=== PATIENT | female | born 1970 | race Caucasian/White ===

== ENCOUNTER 2017-03-11 10:52 | Outpatient (CLI) | payer BC | END 2017-03-11 10:53 | disposition home or self-care (01) | DX: E04.0 Nontoxic diffuse goiter (principal) ==

== ENCOUNTER 2017-03-22 13:14 | Outpatient (CLI) | payer BC ==
--- NOTE | 2017-03-22 16:47 | Ultrasound Report ---
THYROID ULTRASOUND: 03/22/2017 CLINICAL HISTORY: A 46-year-old female who has had a mass in the central portion of the neck at the level of the thyroid since at least age 23 years old. Recently, this mass has shown some mild increase in size. TECHNIQUE: Real-time scanning was performed with sales representative adding machines static images obtained. FINDINGS: Thyroid ultrasound demonstrates the right lobe of the thyroid to measure 4.9 cm by 1 cm by 1.3 cm for a volume of 3.3 cubic centimeters. The left lobe of the thyroid measures 4.6 cm by 1.2 cm by 1.2 cm for a volume of 3.4 cubic centimeters. The thyroid appears normal in size and parenchymal pattern. The thyroid isthmus measures 0.15 cm. It, too, appears normal in size and parenchymal pattern. Immediately anterior to the thyroid isthmus and completely separate from it is a rounded mass measuring 2.2 cm by 2.8 cm by 1.7 cm. This mass has a very similar appearance to the adjacent thyroid gland. 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 There are two 0.2 cm hypodense nodules are noted within the inferior aspect of this ectopic thyroid tissue. These may represent tiny thyroid cysts. Considering patient is noting increased size of this potentially ectopic thyroid tissue, recommend patient have thyroid function tests. Also suggest that she have I-123 thyroid Nuclear Medicine scan with SPECT imaging to further confirm that the midline mass truly does represent ectopic thyroid tissue. IMPRESSION: 1. NORMALLY SITUATED THYROID GLAND IS NOTED. 2. IMMEDIATELY ANTERIOR TO THE THYROID ISTHMUS AND SEPARATE FROM IT, IS A 2.2 CM BY 2.8 CM BY 1.7 CM OVAL-SHAPED MASS THAT MOST LIKELY REPRESENTS ECTOPIC THYROID TISSUE. RECOMMEND AN I-123 NUCLEAR MEDICINE SCAN OF THE THYROID IN ASSOCIATION WITH SPECT IMAGING TO FURTHER CONFIRM THIS ETIOLOGY. ALSO RECOMMEND THYROID FUNCTION TESTS FOR FURTHER EVALUATION. JOB #: [id number] EXT JOB #: [id number] [facility]
== END 2017-03-22 13:15 | disposition home or self-care (01) ==
LOC: DI 13:14
PROVIDERS: ATTEND Nurse Practitioner Obstetrics & Gynecology
DX: E07.9 Disorder of thyroid, unspecified (principal)
CPT/HCPCS: 76536

== ENCOUNTER 2017-04-23 11:42 | Outpatient (CLI) | payer BC ==
[2017-04-23 19:43] LABS: BASOPHILS # (AUTO) 0.1 10^3/uL (0.0-0.1); BASOPHILS % (AUTO) 1.4 %; EOSINOPHILS # (AUTO) 0.2 10^3/uL (0.0-0.7); EOSINOPHILS % (AUTO) 2.6 %; HCT - HEMATOCRIT 38.4 % (37.0-47.0); HGB - HEMOGLOBIN 12.6 g/dL (12.0-16.0); LYMPHOCYTES # (AUTO) 2.6 10^3/uL (1.5-3.5); LYMPHOCYTES % (AUTO) 34.6 %; MEAN CORPUSCULAR HEMOGLOBIN 32.1 pg (27.0-31.0); MEAN CORPUSCULAR HGB CONC 32.8 g/dL (32.0-36.0); MEAN CORPUSCULAR VOLUME 97.9 fL (81.0-99.0); MEAN PLATELET VOLUME 9.1 fL (7.9-10.8); MONOCYTES # (AUTO) 0.6 10^3/uL (0.0-1.0); MONOCYTES % (AUTO) 7.4 %; RED BLOOD COUNT 3.92 10^6/uL (4.20-5.40); RED CELL DISTRIBUTION WIDTH 13.9 % (12.0-15.0); UNCORRECTED WHITE BLOOD COUNT 7.5 x10^3/uL; WHITE BLOOD COUNT 7.5 x10^3/uL (4.8-10.8)
[2017-04-23 20:14] LABS: ALBUMIN/GLOBULIN RATIO 1.2 (1.0-2.2); BILIRUBIN,TOTAL 0.5 mg/dL (0.2-1.0); CREATININE 0.8 mg/dL (0.4-1.0); TOTAL PROTEIN 6.9 g/dL (6.7-8.2)
== END 2017-04-23 11:43 | disposition home or self-care (01) ==
LOC: LAB.WCP 11:42
PROVIDERS: ATTEND Physician Assistant Medical
DX: E07.9 Disorder of thyroid, unspecified (principal)
CPT/HCPCS: 36415; 80053; 84432; 85025; 86800

== ENCOUNTER 2017-06-03 08:57 | Outpatient (CLI) | payer BC ==
--- NOTE | 2017-06-04 11:32 | Nuclear Medicine Report ---
EXAM: THYROID UPTAKE AND SCAN EXAM DATE: 06/03/2017 09:27 AM. CLINICAL HISTORY: THYROID MASS. COMPARISON: Ultrasound exam dated 03/22/2017. TECHNIQUE: Patient was administered 392 microcuries of I-123 orally and returned at 4 and 24 hours fo r thyroid uptake measurement. At 4 hours after radioiodine ingestion, anterior gamma camera images of the patient's neck were obtained from 3 standard angles. FINDINGS: Uptake: 4 Hour: 5% (Normal 4-18%). 24 Hour: 12.6% (Normal 8-32%). Thyroid Scan: Thyroid gland of normal size without hot or cold nodules. IMPRESSION: 1. Normal 4 and 24-hour uptake. 2. Normal scintigraphic appearance of thyroid gland without hot or cold nodules. [facility] Referring Provider Line: [phone] SITE ID: [id number]
== END 2017-06-03 08:58 | disposition home or self-care (01) ==
LOC: DI 08:57
PROVIDERS: ATTEND Physician Assistant Medical
DX: E07.9 Disorder of thyroid, unspecified (principal)
CPT/HCPCS: 78014; A9509

== ENCOUNTER 2017-09-17 08:02 | Outpatient (CLI) | payer BC ==
--- NOTE | 2017-09-18 15:05 | Mammography Report ---
DIGITAL SCREENING MAMMOGRAM: 09/17/2017 CLINICAL INDICATION: A 46-year-old nulliparous patient for screening. COMPARISON: 08/2016, 07/2014, 07/2013 TECHNIQUE: Routine CC and MLO projections were obtained of the breasts. FINDINGS: Parenchymal tissue within both breasts is heterogeneously dense, which may lower the sensi tivity of mammography; however, there are no dominant masses, suspicious microcalcifications, or seco ndary signs of malignancy. In comparison to the previous studies, there are no significant changes. ASSESSMENT: NO MAMMOGRAPHIC EVIDENCE OF MALIGNANCY. NO SIGNIFICANT INTERVAL CHANGES. RECOMMENDATION: Screening mammography is recommended annually. BIRADS category 1 - negative. STANDARD QUALIFYING STATEMENTS 1. This examination was reviewed with the aid of Computed-Aided Detection (CAD). 2. A negative or benign imaging report should not delay biopsy if clinically suspicious findings are present. Consider surgical consultation if warranted. More than 5% of cancers are not identified by i maging. 3. Dense breasts may obscure an underlying neoplasm. JOB #: [id number] EXT JOB #:[id number]
== END 2017-09-17 08:03 | disposition home or self-care (01) ==
LOC: DI.N 08:02
PROVIDERS: ATTEND Physician Assistant Medical
DX: Z12.31 Encounter for screening mammogram for malignant neoplasm of breast (principal)
CPT/HCPCS: 77067

== ENCOUNTER 2018-09-30 07:56 | Outpatient (CLI) | payer BC ==
--- NOTE | 2018-10-01 08:51 | Mammography Report ---
Reason: SCREENING MAMMO Procedure Date: 09/30/2018 Accession Number: [id number] / [id number] Procedure: ISSA - Screening Mammo w/Louis CPT Code: FULL RESULT: EXAM: Screening Mammo w/Louis DATE: 09/30/2018 8:49 AM CLINICAL HISTORY: Screening encounter. History of nulliparity. TECHNIQUE: Bilateral CC and MLO views were obtained. A right laterally exaggerated view was obtained. COMPARISON: 09/17/2017 through 08/15/2013. FINDINGS: The breasts demonstrate heterogeneously dense fibroglandular parenchyma bilaterally. No suspicious masses, clustered microcalcifications, or regions of architectural distortion are identified. IMPRESSION: Negative examination RECOMMENDATION: Routine annual screening unless otherwise clinically indicated. BIRADS CATEGORY 1: Negative STANDARD QUALIFYING STATEMENTS: 1. This examination was not reviewed with the aid of Computer-Aided Detection (CAD). 2. A negative or benign imaging report should not preclude biopsy if clinically suspicious findings are present. 3. Dense breasts may obscure an underlying neoplasm. 4. This examination was reviewed with the aid of 3D breast imaging (tomosynthesis).
== END 2018-09-30 07:57 | disposition home or self-care (01) ==
LOC: DI 07:56
DX: Z12.31 Encounter for screening mammogram for malignant neoplasm of breast (principal)
CPT/HCPCS: 77063; 77067

== ENCOUNTER 2020-07-22 09:22 | Outpatient (CLI) | payer BC ==
--- NOTE | 2020-07-25 13:39 | Mammography Report ---
BILATERAL DIGITAL SCREENING MAMMOGRAM 3D/2D: 07/22/2020 CLINICAL: Routine screening. Comparison is made to exams dated: 09/30/2018 mammogram, 09/17/2017 mammogram, and 09/06/2016 mammogr am - [facility]. The tissue of both breasts is heterogeneously dense. This may low er the sensitivity of mammography. No significant masses, calcifications, or other findings are seen in either breast. There has been no significant interval change. IMPRESSION: NEGATIVE There is no mammographic evidence of malignancy. A 1 year screening mammogram is recommended. This exam was interpreted at Station ID: [id number]. NOTE: For mammograms, a report in lay terms will be sent to the patient. Approximately 15% of breast malignancies will not be visualized mammographically. In the management of a palpable breast mass, a negative mammogram must not discourage biopsy of a clinically suspicious lesion. Electronically Signed By: Tk Jimenez M.D. ar/marurad:07/22/2020 11:25:36 ACR BI-RADS Category 1: Negative 3341F PARENCHYMAL PATTERN: (D) - The breast(s) demonstrate(s) heterogeneously dense fibroglandular yefri miller. BI-RADS CATEGORY: (1) - 1 RECOMMENDATION: (ANNUAL) - Recommend routine annual screening mammography. [id number] 1 year screening LATERALITY: (B)
== END 2020-07-22 09:23 | disposition home or self-care (01) ==
LOC: DI.N 09:22
DX: Z12.31 Encounter for screening mammogram for malignant neoplasm of breast (principal)
CPT/HCPCS: 77063; 77067

== ENCOUNTER 2020-10-05 07:00 | Outpatient (CLI) | payer BC ==
[2020-10-05 12:11] LABS: BASOPHILS # (AUTO) 0.1 10^3/uL (0.0-0.1); BASOPHILS % (AUTO) 1.3 %; EOSINOPHILS # (AUTO) 0.1 10^3/uL (0.0-0.7); EOSINOPHILS % (AUTO) 1.7 %; HGB - HEMOGLOBIN 13.5 g/dL (12.0-16.0); LYMPHOCYTES # (AUTO) 2.2 10^3/uL (1.5-3.5); LYMPHOCYTES % (AUTO) 42.8 %; MEAN CORPUSCULAR HEMOGLOBIN 32.1 pg (27.0-31.0); MEAN CORPUSCULAR HGB CONC 32.5 g/dL (32.0-36.0); MEAN CORPUSCULAR VOLUME 98.8 fL (81.0-99.0); MEAN PLATELET VOLUME 10.6 fL (7.9-10.8); MONOCYTES # (AUTO) 0.4 10^3/uL (0.0-1.0); MONOCYTES % (AUTO) 7.7 %; NEUTROPHILS # (AUTO) 2.4 10^3/uL (1.5-6.6); NEUTROPHILS % (AUTO) 46.3 %; PLT - PLATELET COUNT 321 10^3/uL (130-450); RED CELL DISTRIBUTION WIDTH 13.2 % (12.0-15.0); WHITE BLOOD COUNT 5.2 x10^3/uL (4.8-10.8)
[2020-10-05 12:26] LABS: ALBUMIN 4.2 g/dL (3.2-5.5); ALBUMIN/GLOBULIN RATIO 1.3 (1.0-2.2); BILIRUBIN,TOTAL 0.6 mg/dL (0.2-1.0); CALCIUM 9.3 mg/dL (8.5-10.3); CREATININE 0.9 mg/dL (0.4-1.0); TOTAL PROTEIN 7.5 g/dL (6.7-8.2)
[2020-10-05 12:35] LABS: FREE T3 3.88 pg/mL (2.5-3.9)
== END 2020-10-05 23:59 | disposition home or self-care (01) ==
LOC: LAB.WCP 07:00
PROVIDERS: ATTEND Nurse Practitioner Family
DX: E07.9 Disorder of thyroid, unspecified (principal)
CPT/HCPCS: 36415; 80053; 84443; 84481; 85025

== ENCOUNTER 2020-11-15 13:25 | Outpatient (CLI) | payer BC ==
--- NOTE | 2020-11-15 16:43 | Ultrasound Report ---
PROCEDURE: Head or Neck Soft Tissue INDICATIONS: THYROID MASS TECHNIQUE: Real-time scanning was performed of the thyroid gland, with image documentation. COMPARISON: 03/22/2017 Nuclear medicine thyroid uptake and scan dated 06/03/2017 FINDINGS: Right: Right thyroid lobe measures 5.2 x 1.4 x 1.4 cm. Homogeneous echotexture. Left: Left thyroid lobe measures 4.8 x 1.5 x 1.3 cm. 0.6 x 0.3 x 0.4 cm cyst in the lower pole. Isthmus: Slightly heterogeneous, ovoid, well encapsulated mass midline neck just superficial to the thyroid isthmus which measures 1.3 mm in thickness. The mass measures 4.0 x 2.4 x 2.9 cm, previously 2.2 x 2.8 x 1.7 cm, demonstrates echogenicity fairly isoechoic to thyroid tissue, and is avascular. N o internal echogenic reflectors IMPRESSION: 1. Interval enlargement of soft tissue mass just superficial to the thyroid isthmus but not discretel y attached. Echogenicity is similar to thyroid tissue, but has no thyroid function based on nuclear m edicine study. Surgical excision could be considered given the lack thyroid function and interval dolores wth. Reviewed by: Justa Lenz MD on 11/15/2020 4:42 PM PST Approved by: Justa Lenz MD on 11/15/2020 4:42 PM PST Station ID: [id number]
== END 2020-11-15 13:26 | disposition home or self-care (01) ==
LOC: DI 13:25
PROVIDERS: ATTEND Nurse Practitioner Family
DX: E07.9 Disorder of thyroid, unspecified (principal)

== ENCOUNTER 2021-05-25 16:49 | Outpatient (CLI) | payer BC | END 2021-05-25 16:50 | disposition home or self-care (01) | LOC: COV 16:49 | PROVIDERS: ATTEND Surgery | DX: Z01.812 Encounter for preprocedural laboratory examination (principal); Q89.2 Congenital malformations of other endocrine glands; Z20.822 Contact with and (suspected) exposure to COVID-19 ==

== ENCOUNTER 2021-05-29 05:51 | Day surgery (SDC) | payer BC ==
[2021-05-29 06:25] LABS: HCG UR QUAL NEGATIVE
[2021-05-29] MEDS ORDERED: LACTATED RINGERS 1,000 ML IV ONE ×2 (06:50→10:10)
[2021-05-29] MEDS ORDERED: ONDANSETRON 4 MG/2 ML VIAL IVP PRN ×3 (07:10→17:32)
[2021-05-29] MEDS ORDERED: METOCLOPRAMIDE 10 MG/2 ML VIAL IVP PRN (07:10)
[2021-05-29] MEDS ORDERED: fentaNYL 100 MCG/2 ML VIAL IVP PRN (07:10)
[2021-05-29] MEDS ORDERED: MORPHINE 2 MG/ML CARPUJECT IVP PRN (07:10)
[2021-05-29] MEDS ORDERED: ATROPINE ABBOJECT 1 MG/10 ML SYRINGE IVP PRN (07:10)
[2021-05-29] MEDS ORDERED: NALOXONE 0.4 MG/ML VIAL IVP PRN (07:10)
[2021-05-29] MEDS ORDERED: HYDROmorphone 0.5 MG/0.5 ML SYRINGE IVP PRN (07:10)
[2021-05-29] MEDS ORDERED: ePHEDrine 50 MG/ML VIAL IVP PRN (07:10)
--- NOTE | 2021-05-29 07:10 | ANESTHESIA ---
Pre-Anesthesia VS, & Labs - Diagnosis Thyroglossal duct cyst - Procedure excision thyroglossal duct cyst Vital Signs: Temp Pulse Resp BP Pulse Ox 36.2 C L 76 18 117/79 95 05/29/21 06:15 05/29/21 06:15 05/29/21 06:15 05/29/21 06:15 05/29/21 06:15 Height: 5 ft 3 in Weight (kg): 77.2 kg Body Mass Index: 30.1 BMI Classification: Obese - NPO >8 hours - Is Patient ?: No - Lab Results Lab results reviewed: Yes Home Medications and Allergies Home Medications: Ambulatory Orders No Known Home Medications 05/22/21 No Known Home Medications 05/22/21 Allergies/Adverse Reactions: Allergies Allergy/AdvReac Type Severity Reaction Status Date / Time No Known Drug Allergies Allergy Verified 05/22/21 10:56 Anes History & Medical History - Anesthetic History Anesthesia Complications: reports: Post-Operative Nausea/Vomiting Family history of Anesthesia Complications: Denies Family history of Malignant Hyperthermia: Denies - Medical History Cardiovascular: reports: None Pulmonary: reports: None Gastrointestinal: reports: None Urinary: reports: Chronic bladder infection Musculoskeletal: reports: None Endocrine/Autoimmune: reports: None Skin: reports: None Psychosocial: reports: No issues indicated History of Cancer?: No - Surgical History Eyes Ears Nose Throat (EENT): reports: Other (deviated septum surgery) Exam General: Alert, Oriented x3, Cooperative Dental: WNL Mouth Openin Fingerbreadth Neck Mobility: Normal (mass (cyst), midline, 2 fingerbreaths below thyroid cartilage) Mallampati classification: II Thyromental Distance: 4-6 cm Respiratory: Lungs clear, Normal breath sounds, No respiratory distress Cardiovascular: Regular rate Mental/Cognitive Status: Alert/Oriented X3, Normal for patient Plan Anesthesia Type: General Consent for Procedure(s) Verified and Reviewed: Yes Code Status: Attempt Resuscitation ASA classification: 2-Mild systemic disease Is this case an emergency?: No
[2021-05-29] MEDS ORDERED: ceFAZolin 2 GM/50 ML 2 GM/50 ML BAG IV ONE (07:29)
[2021-05-29] MEDS ORDERED: MIDAZOLAM 2 MG/2 ML VIAL ONE (07:49)
[2021-05-29] MEDS ORDERED: PROPOFOL 200 MG/20 ML VIAL IVP ONE (07:49)
[2021-05-29] MEDS ORDERED: LIDOCAINE-MPF 2% 5 ML VIAL ONE (07:49)
[2021-05-29] MEDS ORDERED: fentaNYL 100 MCG/2 ML VIAL ONE (07:49)
[2021-05-29] MEDS ORDERED: LACTATED RINGERS 1,000 ML IV SCH ×2 (08:00→10:32)
[2021-05-29] MEDS ORDERED: ROCURONIUM 50 MG/5 ML VIAL ONE (08:00)
[2021-05-29] MEDS ORDERED: BUPIVACAINE 0.5% PF 30 ML VIAL ONE (08:04)
[2021-05-29] MEDS ORDERED: BUPIVACAINE 0.5% PF 30 ML VIAL INFIL ONE ×2 (08:09)
[2021-05-29] MEDS ORDERED: ONDANSETRON 4 MG/2 ML VIAL ONE (08:38)
[2021-05-29] MEDS ORDERED: DEXAMETHASONE 4 MG/ML VIAL ONE (08:38)
[2021-05-29] MEDS ORDERED: HYDROmorphone 1 MG/ML CARPUJECT ONE (08:49)
--- NOTE | 2021-05-29 10:04 | OPERATIVE REPORT ---
Operative Report - General Procedure Date: 05/29/21 Planned Procedure: Excision thyroglossal duct cyst Excision skin tags Pre-Op Diagnosis: Thyroglossal duct cyst, skin tags (neck) Procedure Performed: Excision thyroglossal duct cyst Excision skin tags (x5) neck Intraoperative consult of Dr. Lawson Post Op Diagnosis: Thyroglossal duct cyst, neck skin tags - Procedure Note Primary Surgeon: Liam Adler MD Anesthesia Provider: Ilene Holm CRNA Anesthesia Technique: General ET tube, Local (10 mL 1/2% marcaine) IV Fluids (mL): 1,100 Estimated Blood Loss (mL): 5 Drain/Tube Type: Other (None.) Indications: Thyroglossal duct cyst, skin tag x5 (neck) Findings: Thyroglossal duct cyst with the fistula tract not traversing the hyoid Complications: None. - Other Other Information/Narrative: After verbal and written informed consent was obtained detailing the operation, the alternatives the operation including no operation, risks of infection, bleeding requiring transfusion with its risks, nerve injury, and and after I met with the patient confirming the surgery and the site of surgery as well as reobtaining informed consent, the patient was brought to the operative suite and placed supine on the operating table. Great care was taken to avoid pressure points to prevent pressure necrosis or nerve injury. Monitoring devices were applied along with TEDs and pneumatic compression stockings (to prevent DVT). The patient received preoperative antibiotics for surgical prophylaxis. Ilene Holm CRNA sedated and anesthetized the patient for the entire procedure. The patient was prepped and draped in the usual sterile manner. A "time in" then confirmed that the patient was identified with 3 identifiers (name, date, and medical record number), the history and physical was updated and in the chart, the signed consent confirming the procedure was in the chart, the patient was in the correct position, the aforementioned prophylactic measures were in place or given, we had the correct personnel and equipment to complete the procedure and that anesthesia and the surgical team were given an opportunity to express any concerns. With the agreement of everyone in the room we proceeded with the operation. A standard neck incision was made 5 cm long in between the cyst and the patient's chin taking care to place the incision in a skin fold using a 15 blade scalpel. Dissection beyond the platysma was completed using Bovie electrocautery. The cyst was located anterior to the strap muscles having moved the strap muscles laterally. Dissection of the cyst in order to free it consisted of Bovie electrocautery as well as blunt dissection with Sierra and a right angle. The adhesions were mostly filmy. Despite this I managed to make a small hole in the cyst at which point it emptied its contents of white cheesy material. This made the dissection easier as I did not have to work around the cyst. The fistula was then followed superiorly to the base of the tongue. This was confirmed by having Ilene Holm stick her finger in the patient's mouth and push on the posterior tongue and I could feel her finger through the tongue and through the tissues with my finger in the wound along the fistula tract. And is the fistula tract traversed anteriorly to a very large hyoid but did not go through the hyoid I was concerned about this alternative anatomy and consulted Dr. Lawson who was kind enough to come into the operating room, scrub, examined the wound and the patient and opined that it did not appear that the fistula tract went through the hyoid. I should note that the dissection of this tract was done primarily using Bovie electrocautery. A small vein that was running along the tract was clipped. Once I got to the base of the tongue it was suture ligated using a 3-0 Vicryl suture ligature. The wound was irrigated using warm sterile saline. No bleeding was noted. The platysma was reapproximated using interrupted 3-0 Vicryl sutures. The skin incision was approximated with interrupted 5-0 nylon mattress sutures. The skin was cleaned of its prep and Mastisol and quarter inch Steri-Strips were applied in between the sutures. The incision was injected circumferentially using half percent Marcaine.5 skin tags were excised from the patient's neck using iris scissors. Half percent Marcaine was injected underneath these excision sites. At this point a timeout was performed that confirmed that all counts were correct x2, the procedure that was performed, the blood loss, the IV fluids administered, the patient's condition, and any concerns of the operating team had. Having tolerated the procedure well, the patient was taken recovery room in good and stable condition. The plan is for outpatient discharge when the patient is adequately recovered. This document was created in part using voice recognition technology. Because of the inherent limitations of the system, occasional same sounding word substitutions and grammatical errors do occur and persist despite proofreading. Please read this document for content.
[2021-05-29] MEDS ORDERED: SODIUM CHLORIDE FLUSH 0.9% 10 ML SYRINGE IVP PRN (10:20)
[2021-05-29] MEDS ORDERED: NEOSTIGMINE 1 MG/1 ML 10 ML MDV ONE (10:28)
[2021-05-29] MEDS ORDERED: GLYCOPYRROLATE 1 MG/5 ML VIAL ONE (10:28)
[2021-05-29] MEDS ORDERED: HYDROcod/ACETAM 5/325 MG TABLET PO PRN (10:30)
[2021-05-29] MEDS ORDERED: KETOROLAC 30 MG/ML VIAL ONE (10:32)
--- NOTE | 2021-05-29 13:24 | ANESTHESIA POST OP EVALUATION ---
Anesthesia Post Eval - Post Anesthesia Eval Vitals: Last Vital Signs Temp 36.5 C 05/29/21 12:54 Pulse 66 05/29/21 12:54 Resp 16 05/29/21 12:54 BP 127/72 05/29/21 12:54 Pulse Ox 95 05/29/21 12:54 CV Function Including HR & BP: Stable Pain Control: Satisfactory Nausea & Vomiting: Negative Mental Status: Baseline Respiratory Status: Airway Patent Hydration Status: Satisfactory Anesthesia Complications: None
[2021-05-29] MEDS: SODIUM CHLORIDE FLUSH 0.9% 10 ML SYRINGE IVP SCH (15:38)
[2021-05-29] MEDS: ACETAMINOPHEN 500 MG TABLET PO PRN (17:57)
[2021-05-30] MEDS: ACETAMINOPHEN 500 MG TABLET PO PRN (01:36)
[2021-05-30] MEDS: SODIUM CHLORIDE FLUSH 0.9% 10 ML SYRINGE IVP SCH (01:37)
[2021-05-30 07:35] VITALS: BP 107/55
--- NOTE | 2021-05-30 08:20 | PROVIDER PROGRESS NOTE ---
Subjective - General Procedure Date: 05/29/21 Post Op Days: 1 Procedure Performed: Excision thyroglossal duct cyst - Review of Systems Wound/Incisions: positive: Healing well, Dressing dry and intact, No drainage Drain Type: None. Drain Output Description: NA Approximate mls Output: NA General: positive: No symptoms HEENT: positive: No symptoms Pulmonary: positive: No symptoms Cardiovascular: positive: No symptoms Gastrointestinal: positive: No symptoms Genitourinary: positive: No symptoms Musculoskeletal: positive: No symptoms Skin: positive: No symptoms Psychiatric: positive: No symptoms Objective - Patient Data Reviewed Vital Signs: Yes Vital Signs: Vital Signs x48h Temp Pulse Resp BP Pulse Ox 05/30/21 07:34 36.7 C 62 16 107/55 L 97 Weight: Weight 05/28/21 05/29/21 05/30/21 23:59 23:59 23:59 Weight (kg) 77.2 kg Intake & Output: Intake and Output Totals x24h 05/28/21 05/29/21 05/30/21 23:59 23:59 23:59 Intake Total 1300 300 Output Total 455 Balance 845 300 - Current Medications Current Medications: Current Medications Generic Name Dose Route Start Last Admin Trade Name Freq PRN Reason Stop Dose Admin Acetaminophen 500 mg 05/29/21 17:31 05/30/21 01:36 Acetaminophen 500 Mg Tablet PO 500 mg Q4HR PRN Administration Pain or Fever > 38C (100.4F) Hydrocodone Bitart/Acetaminophen 1 tab 05/29/21 10:30 05/29/21 15:33 Hydrocod/Acetam 5/325 Mg Tablet PO 1 tab Q4HR PRN Administration PAIN Ondansetron HCl 4 mg 05/29/21 17:32 05/29/21 17:58 Ondansetron 4 Mg/2 Ml Vial IVP 4 mg Q4HR PRN Administration Nausea / Vomiting Sodium Chloride 10 ml 05/29/21 17:00 05/30/21 01:37 Sodium Chloride Flush 0.9% 10 Ml Syringe IVP 10 ml 0100,0900,1700 PRINCE Administration Sodium Chloride 10 ml 05/29/21 10:20 05/29/21 13:16 Sodium Chloride Flush 0.9% 10 Ml Syringe IVP 10 ml PRN PRN Administration NEEDED PER PROVIDER ORDERS - Physical Exam Wound/Incisions: positive: Healing well, No drainage General Appearance: positive: No acute distress Eyes Bilateral: positive: Conjunctivae nml ENT: positive: Pharynx nml, No signs of dehydration Skin: positive: Color nml Extremities: positive: Non-tender, Full ROM, Nml appearance Neurologic/Psychiatric: positive: Oriented x3 ABX Reporting Has patient been on IV antibiotics over the past 48 hours?: Yes Impression/Plan - Problem List Problem List: D1 s/p thyroglossal duct cyst excision and excision skin tags x5 Patient has done well with no neck swelling, no difficulty swallowing or phonating. Nausea has resolved nicely. Operative findings were reviewed with the patient as were postoperative instructions. I will see the patient in 1 w [place] for her postoperative visit and have asked her to call me with any questions or concerns in the meantime.
== END 2021-05-30 09:20 | disposition home or self-care (01) ==
LOC: SDS 05:51 → MS2 10:59 → SDS 05-30 09:20
PROVIDERS: ATTEND Surgery
PROC: 0WB60ZZ Excision of Neck, Open Approach (ICD-10-PCS; principal; 2021-05-29 07:30)
DX: Q89.2 Congenital malformations of other endocrine glands (principal); L91.8 Other hypertrophic disorders of the skin; E66.9 Obesity, unspecified; Z68.30 Body mass index [BMI] 30.0-30.9, adult
CPT/HCPCS: 11200; 60280; 81025; A9270; J0690; J1170; J7120

== ENCOUNTER 2022-10-04 08:28 | Outpatient (CLI) | payer BC ==
--- NOTE | 2022-10-05 10:38 | Mammography Report ---
BILATERAL DIGITAL SCREENING MAMMOGRAM 3D/2D: 10/04/2022 CLINICAL: Routine screening. Comparison is made to exams dated: 07/22/2020 mammogram, 09/30/2018 mammogram, and 09/17/2017 mammogra m - [facility]. Both breasts are heterogeneously dense, which may obscure small masses (category c / 51-75% glandular tissue). No significant masses, calcifications, or other findings are seen in either breast. There has been no significant interval change. IMPRESSION: NEGATIVE There is no mammographic evidence of malignancy. A 1 year screening mammogram is recommended. Based on Tyrer-Cuzick model (a risk assessment model), the patient's lifetime risk is 20.2% and her 1 0 year risk is 5.0%. If a patient has an elevated risk, a more comprehensive evaluation should be con sidered and/or a referral to a genetic counselor. The [employer] [employer], [employer], and NCCN Guidelines advise the consideration of Breast MRI as an adjunct to screening mammog marky in patients whose "Lifetime risk to develop breast cancer" is 20% or higher. This exam was interpreted at Station ID: [id number]. NOTE: For mammograms, a report in lay terms will be sent to the patient. Approximately 15% of breast malignancies will not be visualized mammographically. In the management of a palpable breast mass, a negative mammogram must not discourage biopsy of a clinically suspicious lesion. Electronically Signed By: Tk nolen/anton:10/04/2022 11:34:06 ACR BI-RADS Category 1: Negative 3341F PARENCHYMAL PATTERN: (D) - The breast(s) demonstrate(s) heterogeneously dense fibroglandular parmiy ma. BI-RADS CATEGORY: (1) - 1 RECOMMENDATION: (ANNUAL) - Recommend routine annual screening mammography. [id number] 1 year screening LATERALITY: (B)
== END 2022-10-04 08:29 | disposition home or self-care (01) ==
LOC: DI.N 08:28
DX: Z12.31 Encounter for screening mammogram for malignant neoplasm of breast (principal)

== ENCOUNTER 2023-06-03 07:25 | Outpatient (CLI) | payer BC ==
[2023-06-03 12:40] LABS: BASOPHILS # (AUTO) 0.1 10^3/uL (0.0-0.1); BASOPHILS % (AUTO) 1.3 %; EOSINOPHILS # (AUTO) 0.1 10^3/uL (0.0-0.7); EOSINOPHILS % (AUTO) 1.8 %; HCT - HEMATOCRIT 40.2 % (37.0-47.0); HGB - HEMOGLOBIN 12.8 g/dL (12.0-16.0); LYMPHOCYTES # (AUTO) 2.9 10^3/uL (1.5-3.5); LYMPHOCYTES % (AUTO) 46.7 %; MEAN CORPUSCULAR HEMOGLOBIN 31.5 pg (27.0-31.0); MEAN CORPUSCULAR HGB CONC 31.8 g/dL (32.0-36.0); MEAN PLATELET VOLUME 11.1 fL (7.9-10.8); MONOCYTES # (AUTO) 0.6 10^3/uL (0.0-1.0); MONOCYTES % (AUTO) 9.1 %; NEUTROPHILS # (AUTO) 2.5 10^3/uL (1.5-6.6); NEUTROPHILS % (AUTO) 40.9 %; PLT - PLATELET COUNT 424 10^3/uL (130-450); RED BLOOD COUNT 4.06 10^6/uL (4.20-5.40); RED CELL DISTRIBUTION WIDTH 13.2 % (12.0-15.0); WHITE BLOOD COUNT 6.1 x10^3/uL (4.8-10.8)
[2023-06-03 13:13] LABS: ALBUMIN 4.5 g/dL (3.2-5.5); ALBUMIN/GLOBULIN RATIO 1.5 (1.0-2.2); ALKALINE PHOSPHATASE 54 IU/L (42-121); ALT ALANINE AMINOTRANSFERASE 15 IU/L (10-60); AST ASPARTATE AMINOTRANSFERASE 17 IU/L (10-42); BILIRUBIN,TOTAL 0.4 mg/dL (0.2-1.0); BUN - BLOOD UREA NITROGEN 14 mg/dL (6-20); CALCIUM 9.1 mg/dL (8.5-10.3); CARBON DIOXIDE - CO2 29 mmol/L (21-32); CHLORIDE 106 mmol/L (101-111); CHOL/HDL RATIO 5.2 (<4.4); CHOLESTEROL 225 mg/dL; CREATININE 0.9 mg/dL (0.6-1.3); GFR - MDRD 66 (>89); GLUCOSE 88 mg/dL (74-104); HDL CHOLESTEROL 43 mg/dL; LDL CHOLESTEROL,CALCULATED 138 mg/dL; LDL/HDL RATIO 3.2 (<4.4); POTASSIUM 4.4 mmol/L (3.5-4.5); SODIUM 139 mmol/L (135-145); TOTAL PROTEIN 7.6 g/dL (6.4-8.9); TRIGLYCERIDES 219 mg/dL (48-352); VLDL CHOLESTEROL 44 mg/dL
[2023-06-03 13:16] LABS: THYROID STIMULATING HORMONE 1.63 uIU/mL (0.34-5.60)
== END 2023-06-03 07:26 | disposition home or self-care (01) ==
LOC: LAB.N 07:25
PROVIDERS: ATTEND Nurse Practitioner
DX: Z00.00 Encounter for general adult medical examination without abnormal findings (principal); Z13.220 Encounter for screening for lipoid disorders; E07.9 Disorder of thyroid, unspecified
CPT/HCPCS: 36415; 80053; 80061; 83721; 84443; 85025

== ENCOUNTER 2023-06-18 07:55 | Outpatient (CLI) | payer BC ==
--- NOTE | 2023-06-18 10:07 | CT Report ---
PROCEDURE: HEAD WO INDICATIONS: MIGRAINE RIVERA TECHNIQUE: Noncontrast 4.5 mm thick angled axial sections acquired from the foramen magnum to the vertex. For r adiation dose reduction, the following was used: automated exposure control, adjustment of mA and/or kV according to patient size. COMPARISON: None. FINDINGS: Image quality: Excellent. CSF spaces: Basal cisterns are patent. No extra-axial fluid collections. Ventricles are normal in size and shape. Brain: No midline shift. No intracranial masses or hemorrhage. Mei-white matter interface is norm al. Skull and face: Calvarium and visualized facial bones are intact, without suspicious lesions. Sinuses: There is partial visualization of focal left maxillary sinus disease. No significant abnorma l fluid can be seen within the mastoid air cells. IMPRESSION: Unremarkable noncontrast head CT, without a cause of headache identified. Focal left maxillary sinus disease partially seen. Reviewed by: Zeb Tesfaye MD on 06/18/2023 9:06 AM PIPE Approved by: Zeb Tesfaye MD on 06/18/2023 9:06 AM PIPE Station ID: [id number]
== END 2023-06-18 07:56 | disposition home or self-care (01) ==
LOC: DI 07:55
PROVIDERS: ATTEND Nurse Practitioner
DX: G43.909 Migraine, unspecified, not intractable, without status migrainosus (principal)